=== PATIENT | female | born 1975 | race Caucasian/White ===

== ENCOUNTER 2023-11-02 09:11 | Emergency (ER) | payer BC, OTHER, SELFPAY ==
--- NOTE | ~2023-11-02 | US_ITS ---
EXAMINATION: US abdomen limited DATE: 11/02/2023 11:38 INDICATION: Epigastric abdominal pain. Elevated lipase. TECHNIQUE: Multiple grayscale and Doppler ultrasound images of the abdomen were obtained. COMPARISON: None FINDINGS: The visualized portions of the head and body of the pancreas are normal. The liver is carlos l without focal lesion. There is normal flow in main portal vein. The gallbladder is normal in size a nd contains a gallstone. No gallbladder wall thickening or sonographic Mack sign. The common duct i s normal and measures 4 mm. IMPRESSION: 1. Normal pancreas. Note that ultrasound has poor sensitivity for pancreatitis. 2. Cholelithiasis. No evidence of acute cholecystitis. Reviewed, dictated and finalized at location A.
--- NOTE | ~2023-11-02 | CT_ITS ---
EXAMINATION: CT abdomen pelvis w con DATE: 11/02/2023 11:52 INDICATION: Epigastric abdominal pain. TECHNIQUE: Computed tomography (CT) of the abdomen and pelvis was performed with 100 mL Omnipaque 350 intravenous contrast. Automated exposure control and iterative reconstruction technique were employe d. The dose-length product was 641.80 mGy-cm. COMPARISON: Ultrasound 11/02/2023 FINDINGS: The visualized portions of lung bases demonstrate mild atelectasis. No pleural effusion. Th e heart size is normal. No pericardial effusion. The liver and spleen are normal. There is a gallston e in the gallbladder, which is normal in size. The pancreas and adrenal glands are normal. There are cysts in the kidneys measuring up to 16 mm on the left. There is a 5 mm stone in left kidney. There i s diverticulosis of the colon without evidence of diverticulitis. There are no dilated loops of bowel . The appendix is normal. There are no pathologically enlarged lymph nodes. There is no free intraper itoneal fluid. Aortic atherosclerosis is noted. There is a benign bone island in the sacrum. There is severe lumbar spondylosis. IMPRESSION: 1. Cholelithiasis. No evidence of acute cholecystitis. Reviewed, dictated and finalized at location A.
[2023-11-02 09:15] VITALS: BP 141/95; PULSE 79; RESP 18; O2SAT 97
[2023-11-02 09:55] LABS: Alanine Aminotransferase 19 U/L (6-35); Albumin Level 4.7 g/dL (3.5-5.1); Alkaline Phosphatase 56 U/L (38-126); Anion Gap 9 mmol/L (4-12); Aspartate Amino Transferase 26 U/L (14-36); Bilirubin,Total 0.3 mg/dL (0.2-1.3); Blood Urea Nitrogen 20 mg/dL (7-17); Calcium 9.6 mg/dL (8.4-10.2); Carbon Dioxide 26 mmol/L (22-30); Chloride 102 mmol/L (98-107); Estimated CRCL calculation 60 ml/min; Estimated Glomerular Filt Rate 53; Glucose 89 mg/dL (65-110); Lipase 377 U/L (23-300); Potassium 3.6 mmol/L (3.4-5.0); Sodium 137 mmol/L (137-145)
[2023-11-02 09:58] LABS: Basophils Percent Auto 0.7 % (0.2-1.2); Eosinophils Absolute Auto 0.2 K/mm3 (0-0.3); Eosinophils Percent Auto 2.8 % (0-4.4); Hematocrit 39.4 % (37.0-47.0); Hemoglobin 13.7 g/dL (12.0-15.0); Immature Granulocyte Absolute 0.01 K/mm3 (0.00-0.031); Immature Granulocyte Percent A 0.2 % (0-0.5); Lymphocytes Percent Auto 29.8 % (18.3-44.2); Mean Corpuscular HGB Conc 34.8 g/dl (32-36); Mean Corpuscular Hemoglobin 31.2 pg (26-34); Mean Corpuscular Volume 89.7 fl (80-100); Mean Platelet Volume 11.4 fl (7.4-10.4); Monocytes Absolute Auto 0.5 K/mm3 (0.1-0.6); Monocytes Percent Auto 8.9 % (2.6-8.5); Neutrophils Absolute Auto 3.1 K/mm3 (1.3-6.7); Neutrophils Percent Auto 57.6 % (45.5-73.1); Platelet Count Result 305 k/mm3 (150-375); Red Blood Count 4.39 M/mm3 (4.2-5.4); Red Cell Distribution Width 14.2 % (11.5-14.5); White Blood Count 5.4 K/mm3 (4.5-10.0)
[2023-11-02 10:00] VITALS: BP 147/86; PULSE 79; RESP 16; O2SAT 100
[2023-11-02 10:10] LABS: Add Urine Microscopic? YES; Appearance Urine Clear (Clear); Bacteria Urine None Seen /hpf; Bilirubin Urine Negative (Negative); Blood Urine 2+ (Negative); Color Urine Yellow (Yellow); Glucose Urine UA Negative (Negative); Ketones Urine Negative (Negative); Leukocyte Esterase Ur Negative LEU/UL (Negative); Nitrate Urine Negative (Negative); Non Pathogenic Casts 0-2; Protein Urine Negative (Negative); Specific Grav Ur 1.013 (1.001-1.035); Squamous Epithelial Cell Urine None Seen /hpf (Few); Urobilinogen Urine 0.2 mg/dL (<2.0); WBC Urine 0-5 /hpf (0-3)
--- NOTE | 2023-11-02 10:20 | ED.ABDPAIN ---
HPI - Abdominal Pain General Chief Complaint: Abdominal Pain Stated Complaint: abdominal pain Time Seen by Provider: 11/02/23 09:39 History of Present Illness HPI narrative: This is a 48-year-old female with a past medical history significant for gastroesophageal reflux disease, anxiety. She presents to the emergency department today with a chief complaint of epigastric abdominal pain that is nonradiating. She states it feels like a band across her epigastrium and a gnawing sensation in the center of her abdomen. States she went to her doctor's appointment 2 days ago which she was told she potentially has a peptic ulcer and was told to lay off any NSAIDs, caffeine or any stressors in her life. She states she has never had an ulcer before. Presently is Wegoovy go be for weight loss but no recent titration is or changes and she has been on for 9 months. No significant drinking history. No history of gallstones to her nausea. History of abdominal surgery including hysterectomy. No recent traumas or injuries. States her symptoms are going on for 2 days intermittent, not alleviated by any of her Protonix, he pads or any position changes. Denies any urinary complaints. No chest pain, shortness a breath, headache, vision changes, GI or symptoms otherwise. Related Data Allergies Allergy/AdvReac Type Severity Reaction Status Date / Time Penicillins Allergy Anaphylaxis Verified 11/02/23 11:05 Review of Systems Review of Systems: As reviewed above in HPI Exam Narrative: GENERAL: [Well-appearing, well-nourished, and in no acute distress.] HEAD: [Normocephalic, atraumatic.] EYES: [PERRLA and EOMI.] ENT: Nares clear, no rhinorrhea or epistaxis. Mucous membranes moist. NECK: Supple. CHEST: [Clear to auscultation. No respiratory distress.] HEART: [Regular rate and rhythm]. No murmur heard. [Normal peripheral pulses.] ABDOMEN: [Soft, nondistended], [nontender], [No rigidity or guarding] EXTREMITIES: Normal range of motion. [No edema.] SKIN: Warm, dry, no rash. NEURO: [No focal deficits]. Alert and oriented [x3.] PSYCH: [Normal mood and affect.] Course Vital Signs Vital signs: Vital Signs Pulse Rate 79 11/02/23 09:15 Respiratory Rate 18 11/02/23 09:15 Blood Pressure 141/95 H 11/02/23 09:15 Pulse Oximetry 97 11/02/23 09:15 Pulse Rate 73 11/02/23 12:00 Respiratory Rate 16 11/02/23 12:00 Blood Pressure 144/87 H 11/02/23 12:00 Pulse Oximetry 100 11/02/23 12:00 MDM - Abdominal Pain MDM Narrative Medical decision making narrative: This is a 48-year-old female with a past medical history including gastroesophageal reflux disease, anxiety, Wegoovy therapy for weight loss. Today she presents with a gnawing epigastric pain for 2 days time. Was told she potentially has an ulcer by her primary care provider yesterday. Pain has worsened so she proceeded to the ER for evaluation. She takes a combination tab for her gastroesophageal reflux disease which include Protonix, no improvement her symptoms. Patient does state that she takes daily NSAIDs for chronic headaches, but no changes or recent increases. She states she has actually been decreasing her dose given her headaches have been improving. Examination is reassuring with normal vital signs, normal cardiovascular assessment and a soft nontender nondistended abdomen. Differential diagnosis at this time includes gastritis, peptic ulcer disease, gastroenteritis, cholelithiasis, cholecystitis. Given that she is on a injectable for weight loss therapy this could also be a pancreatitis related to that or other causes such as an obstructing stone. She has no significant cardiovascular risk factors and I do not believe this is ACS or an ACS equivalent. A broad workup was ordered including a CBC, CMP, lipase, urinalysis. Ultrasound of the right upper quadrant a CT of the abdomen pelvis with attention to the epigastrium was ordered. She was given fluid b
[2023-11-02 11:00] VITALS: BP 141/95; PULSE 83; RESP 18; O2SAT 100
[2023-11-02] MEDS: FAMOTIDINE 20 MG/2 ML VIAL IV PUSH (11:05)
[2023-11-02] MEDS: LACTATED RINGERS 1,000 ML 999 ML IV CONT (11:06)
[2023-11-02] MEDS: MAG HYDROX/AL HYDROX/SIMETH 30 ML UDC PO (11:06)
[2023-11-02 12:00] VITALS: BP 144/87; PULSE 73; RESP 16; O2SAT 100
[2023-11-02 13:50] VITALS: BP 140/82; PULSE 70; RESP 18; O2SAT 99
== END 2023-11-02 13:50 | disposition home or self-care (01) ==
PROVIDERS: Emergency Provider Student in an Organized Health Care Education/Training Program; PCP Family Medicine
DX: K80.20 Calculus of gallbladder without cholecystitis without obstruction (principal); K21.9 Gastro-esophageal reflux disease without esophagitis; Z79.85 Long-term (current) use of injectable non-insulin antidiabetic drugs
CPT/HCPCS: 36415; 74177; 76705; 80053; 81001; 83690; 85025; 96361; 96374; 99284; A9270; J7120; Q9967

== ENCOUNTER 2024-12-02 08:02 | Observation (INO) | payer OTHER, SELFPAY ==
[2024-12-02] VITALS (16 sets, daily range): BP systolic 110–144; BP diastolic 63–91; PULSE 67–97; RESP 10–18; TEMP 35.9–36.8; O2SAT 98–100; BMI 20.2
--- NOTE | ~2024-12-02 | US_ITS ---
EXAMINATION: US renal BI DATE: 12/03/2024 11:26 INDICATION: Renal lesions TECHNIQUE: Multiple ultrasound grayscale images of the kidneys were obtained. COMPARISON: 12/02/2024 FINDINGS: The right kidney measures 11.7 x 6.2 x 7.5 cm. The left kidney measures 10.3 x 5.7 x 4.9 cm. The kidneys demonstrate normal echogenicity. There are a couple anechoic exophytic cysts at the lower pole the left kidney measuring 1.5 cm and 1.3 cm in maximal diameters. The previously seen bilateral hydronephrosis has resolved. No stones identified. The bladder is normal. IMPRESSION: 1. Interval resolution of prior bilateral hydronephrosis. Reviewed, dictated and finalized at location A.
--- NOTE | ~2024-12-02 | XR_ITS ---
EXAMINATION: XR retrograde pyelo w/stent BI DATE: 12/02/2024 11:51 INDICATION: Nephrolithiasis with bilateral obstructive uropathy including bilateral hydronephrosis, hematuria and right flank pain TECHNIQUE: 66 fluoroscopic images of the abdomen and pelvis were obtained during procedure performed by Dr. Adair. Radiologist was not present for the imaging or procedure. The amount of fluoroscopy time used during this procedure was 0.5 minutes. Total DAP was 0.544 mGym^2. COMPARISON: CT dated 12/02/2024 FINDINGS: Spiral Weaver image demonstrates a bone islands at the left sacrum. There are couple phleboliths in the left hemipelvis along with a stone at the distal left ureter. The previously seen tiny stone at the distal right ureter is unable to visualized which could be due to either interval passage or its small size. Subsequent images demonstrate cannulation and retrograde contrast injection into the bilateral ureters which demonstrate mild bilateral hydronephrosis. Normal bowel lucent gas bubbles are seen in the bilateral ureters during the course of injection. Final images demonstrate placement of bilateral internal ureteral stents in expected position with proximal loops in the lower pole calyces of both kidneys and distal loops in the bladder. The stone at the distal left ureter is no longer visualized and may have been extracted. IMPRESSION: 1. Fluoroscopy utilized during bilateral retrograde pyelogram, possible left ureteral stone extraction and bilateral internal ureteral stent placements with stents in expected positions. See procedure note for further detail. Reviewed, dictated and finalized at location A. IMPRESSION: 1. Fluoroscopy utilized during bilateral retrograde pyelogram, possible left ur eteral stone extraction and bilateral internal ureteral stent placements with s tents in expected positions. See procedure note for further detail.
--- NOTE | ~2024-12-02 | CT_ITS ---
EXAMINATION: CT abdomen pelvis wo con, 12/02/2024 8:30 CDT HISTORY: hematuria, right flank pain, hx renal stones COMPARISON: No comparisons available. TECHNIQUE: CT scan of the abdomen and pelvis was performed without IV contrast. One or more of the following dose reduction techniques were used: automated exposure control, adjustment of the mA and/or kV according to patient size, use of iterative reconstruction technique. Unless otherwise stated, incidental findings do not require dedicated follow up imaging FINDINGS: CT abdomen: LUNG BASES: The lung bases are clear. The visualized portions of the heart and pericardium are unremarkable. LIVER: Unremarkable, liver contours intact, no lesions. SPLEEN: Unremarkable, no splenomegaly. KIDNEYS: Right Kidney: Right kidney moderate hydronephrosis and hydroureter degenerative obstructing distal 2 x 2 millimeter ureteral calculus. Left Kidney: Left kidney moderate hydronephrosis and hydroureter due to an obstructing distal 4.5 x 5 mm ureteral calculus with a second calculus in the distal ureter measuring 6 x 5 x 5 mm. Left kidney superior pole there is a complex lesion 2 x 2 cm incompletely evaluated, ultrasound is recommended. Left kidney midpole simple cyst 1 x 1 cm. Left kidney lower pole simple appearing renal cyst 2 x 2 cm. ADRENAL GLANDS: Unremarkable. PANCREAS: Unremarkable. GALLBLADDER/BILIARY: Cholelithiasis. STOMACH AND ESOPHAGUS: Visualized stomach and esophagus within normal limits. BOWEL/MESENTERY: Moderate fecal content, no colitis or diverticulitis. Appendix normal. Mesentery normal. No thickened or dilated loops of small bowel. ADENOPATHY/RETROPERITONEUM: No lymphadenopathy. AORTA/VASCULATURE: Normal caliber aorta. FREE FLUID OR FREE AIR: No free fluid.. CT pelvis: SOLID ORGANS/REPRODUCTIVE: Post hysterectomy. No adnexal mass. BLADDER: Within normal limits. OSSEOUS STRUCTURES: No acute osseous abnormality.No suspicious lesions. OVERLYING SOFT TISSUES: Unremarkable. IMPRESSION: 1. Bilateral obstructive uropathy. 2. Complex left renal lesion concerning for neoplasm. Ultrasound recommended Reviewed, dictated and finalized at location P.
[2024-12-02] MEDS: SODIUM CHLORIDE 0.9% IV 1,000 ML 999 ML IV CONT (08:55)
[2024-12-02] MEDS: ONDANSETRON INJ 4 MG/2 ML VIAL IV PUSH (08:56)
[2024-12-02] MEDS: MORPHINE SULFATE (*CRX) 4 MG/ML INJ IV PUSH (08:58)
[2024-12-02 09:00] LABS: Hematocrit 36.8 % (37.0-47.0); Hemoglobin 12.4 g/dL (12.0-15.0); Immature Granulocyte Percent A 0.4 % (0-0.5); Lymphocytes Absolute Auto 1.07 K/mm3 (0.9-3.2); Mean Corpuscular HGB Conc 33.7 g/dl (32-36); Mean Corpuscular Hemoglobin 29.9 pg (26-34); Mean Corpuscular Volume 88.7 fl (80-100); Nucleated Red Blood Cells Absolute Auto 0.000 K/mm3 (0.0-0.012); Nucleated Red Blood Cells Perc 0.0 % (0.0-0.2); Platelet Count Result 276 k/mm3 (150-375); Red Blood Count 4.15 M/mm3 (4.2-5.4); White Blood Count 10.0 K/mm3 (4.5-10.0)
--- NOTE | 2024-12-02 09:03 | PC.NURSE ---
pt was given half her morphine dose, 2mg. pt says she felt tingling and didn't want the other half. 2 RN waste
[2024-12-02 09:11] LABS: Add Urine Microscopic? YES; Alanine Aminotransferase 16 U/L (6-35); Albumin Level 4.2 g/dL (3.5-5.1); Alkaline Phosphatase 45 U/L (38-126); Anion Gap 9 mmol/L (4-12); Appearance Urine Cloudy (Clear); Aspartate Amino Transferase 26 U/L (14-36); Bilirubin,Total 0.5 mg/dL (0.2-1.3); Blood Urea Nitrogen 37 mg/dL (7-17); Calcium 10.1 mg/dL (8.4-10.2); Carbon Dioxide 24 mmol/L (22-30); Chloride 104 mmol/L (98-107); Estimated CRCL calculation 25 ml/min; Estimated Glomerular Filt Rate 19; Glucose 97 mg/dL (65-110); Lipase 198 U/L (23-300); Non Pathogenic Casts 0-2; Potassium 4.5 mmol/L (3.4-5.0); Sodium 137 mmol/L (137-145); Total Protein 7.3 g/dL (6.3-8.2)
[2024-12-02 09:14] LABS: Need Manual Microscopic Reviewed
--- NOTE | 2024-12-02 09:27 | ED.GENADULT ---
HPI - General Adult General Chief complaint: Back Pain/Injury Stated complaint: poss kidney stones Time Seen by Provider: 12/02/24 08:11 History of Present Illness HPI narrative: Patient is a 49-year-old female who presents ER with flank pain. Ongoing over last couple days. Has pain in left abdomen as well as right upper abdomen. She has tried azo without improvement. No dysuria. She has been having blood in her urine over the last few days as well. Alleviating factors. No fevers or chills or sweats. Has history of kidney stone. Related Data Home Medications ?Medication ?Instructions ?Recorded ?Confirmed ?Last Taken ?Type bupropion HCl 300 mg 24 hr tablet, mg PO 12/02/24 12/01/24 History extended release estradiol 1 mg tablet mg 12/02/24 12/01/24 History ezetimibe 10 mg tablet mg 12/02/24 12/01/24 History fenofibrate nanocrystallized 145 mg PO 12/02/24 12/01/24 History mg tablet ondansetron 4 mg disintegrating mg 12/02/24 12/02/24 History tablet semaglutide (weight loss) 1.7 mg subcut 12/02/24 11/27/24 History mg/0.75 mL subcutaneous pen injector (Wegovy) semaglutide (weight loss) 2.4 mg subcut 12/02/24 Unknown History mg/0.75 mL subcutaneous pen injector (Wegovy) trazodone 50 mg tablet mg 12/02/24 Unknown History valacyclovir 500 mg tablet mg 12/02/24 Unknown History Allergies Allergy/AdvReac Type Severity Reaction Status Date / Time Penicillins Allergy Anaphylaxis Verified 12/02/24 13:53 fluoxetine (From Prozac) AdvReac Intermediate Rash Verified 12/02/24 13:53 sumatriptan (From Imitrex) AdvReac Intermediate shortness Verified 12/02/24 13:53 of breath Review of Systems Review of Systems: All systems reviewed & are unremarkable except as noted in HPI and below Constitutional: Constitutional: Reports no additional constitutional complaints Cardiovascular: Cardiovascular: Reports no additional cardiovascular complaints Respiratory: Respiratory: Reports no additional respiratory complaints Gastrointestinal: Gastrointestinal: Reports no additional gastrointestinal complaints Genitourinary: Genitourinary: Reports no additional female genitourinary complaints [facility] Past Medical History Medical History GERD (gastroesophageal reflux disease) History of kidney stones Family History Family History (Updated 12/02/24 @ 13:53 by Iwona Yan RN) Mother Migraine Grandparent Pneumonia Cirrhosis Social History Social History Smoking status: Former smoker Tobacco type: cigarettes Smoking end date: 09/26/15 Alcohol intake: never Substance use: never Substance use type: marijuana Other substance usage details: pt states she took a gummy for pain control last night and for sleep Last use: 12/01/24 Lack of Transportation: No Lack of Food: Never True Current Housing: I Have Housing Concerned About Future Housing: No Difficulty Paying Gas/Electric Bills: No Difficulty Paying for Meds: No Currently Unemployed: No Education: Decline to Answer Difficulty w/ Childcare or Family Care: No Spiritual care concerns: No Exam Narrative: GENERAL: Well-appearing, well-nourished, and in no acute distress. HEAD: Normocephalic, atraumatic. ENT: Mucous membranes moist. CHEST: Clear to auscultation. No respiratory distress. HEART: Regular rate and rhythm. Normal peripheral pulses. ABDOMEN: Soft, mild discomfort in RUQ and LLQ, nondistended. EXTREMITIES: Normal range of motion. No edema. SKIN: Warm, dry, no rash. NEURO: Alert and oriented x3. PSYCH: Normal mood and affect. Course Course Emergency Course: Patient informed of results. Discussed case with urology and they will take her to the OR for stenting. Urine is not infected. Admit to hospitalist service. Vital Signs Vital signs: Vital Signs Temperature 97.6 F 12/02/24 08:11 Pulse Rate 71 12/02/24 08:11 Respiratory Rate 15 12/02/24 08:11 Blood Pressure 132/63 12/02/24 08:11 Pulse Oximetry 100 12/02/24 08:11 Oxygen Delivery Room Air 12/02/24 08:11 Temperature 97.4 F L 12/02/24 15:41 Pulse Rate 80 12/02/24 15:41 Respiratory Rate 18 12/02/24 15:41 Blood Pressure 144/89 H 12/02/24 15:41 Pulse Oximetry 99 12/02/24 15:41 Oxygen Delivery Room Air 12/02/24 15:21 Oxygen Flow Rate 8 12/02/24 12:25 Medical Decision Making Vital Signs Vital Signs: Vital Signs Temperature 97.6 F 12/02/24 08:11 Pulse Rate 71 12/02/24 08:11 Respiratory Rate 15 12/02/24 08:11 Blood Pressure 132/63 12/02/24 08:11 Pulse Oximetry 100 12/02/24 08:11 Oxygen Delivery Room Air 12/02/24 08:11 Temperature 97.4 F L 12/02/24 15:41 Pulse Rate 80 12/02/24 15:41 Respiratory Rate 18 12/02/24 15:41 Blood Pressure 144/89 H 12/02/24 15:41 Pulse Oximetry 99 12/02/24 15:41 Oxygen Delivery Room Air 12/02/24 15:21 Oxygen Flow Rate 8 12/02/24 12:25 Lab Data 12/02/24 08:47 12/02/24 08:47 Labs: Lab Results 12/02/24 Range/Units 08:47 WBC 10.0 (4.5-10.0) K/mm3 RBC 4.15 L (4.2-5.4) M/mm3 Hgb 12.4 (12.0-15.0) g/dL Hct 36.8 L (37.0-47.0) % MCV 88.7 (80-100) fl MCH 29.9 (26-34) pg MCHC 33.7 (32-36) g/dl RDW 13.1 (11.5-14.5) % Plt Count 276 (150-375) k/mm3 MPV 10.9 H (7.4-10.4) fl Immature Gran % (Auto) 0.4 (0-0.5) % Neut % (Auto) 80.2 H (45.5-73.1) % Lymph % (Auto) 10.7 L (18.3-44.2) % [place] % (Auto) 6.3 (2.6-8.5) % Eos % (Auto) 2.0 (0-4.4) % Baso % (Auto) 0.4 (0.2-1.2) % Lymph # (Auto) 1.07 (0.9-3.2) K/mm3 [place] # (Auto) 0.6 (0.1-0.6) K/mm3 Eos # (Auto) 0.2 (0-0.3) K/mm3 Baso # (Auto) 0.0 (0.0-0.1) K/mm3 Abs Immat Gran (auto) 0.04 H (0.00-0.031) K/mm3 Absolute Neuts (auto) 8.0 H (1.3-6.7) K/mm3 Absolute Nucleated RBC 0.000 (0.0-0.012) K/mm3 Nucleated RBC % 0.0 (0.0-0.2) % Sodium 137 (137-145) mmol/L Potassium 4.5 (3.4-5.0) mmol/L Chloride 104 (98-107) mmol/L Carbon Dioxide 24 (22-30) mmol/L Anion Gap 9 (4-12) mmol/L BUN 37 H D (7-17) mg/dL Creatinine 2.59 H (0.7-1.0) mg/dL Estim Creat Clear Calc 25 ml/min Estimated GFR 19 L (59 - ) Glucose 97 (65-110) mg/dL Calcium 10.1 (8.4-10.2) mg/dL Total Bilirubin 0.5 (0.2-1.3) mg/dL AST 26 (14-36) U/L ALT 16 (6-35) U/L Alkaline Phosphatase 45 (38-126) U/L Total Protein 7.3 (6.3-8.2) g/dL Albumin 4.2 (3.5-5.1) g/dL Lipase 198 (23-300) U/L Urine Color [place] H (Yellow) Urine Appearance Cloudy H (Clear) Urine pH TNP Ur Specific [place] TNP Urine Protein TNP Urine Glucose (UA) TNP Urine Ketones TNP Ur Blood (Man) TNP Urine Nitrate TNP Urine Bilirubin TNP Urine Urobilinogen TNP Add Ur Microanalysis Reviewed Leukocyte Esterase Rfl TNP Urine RBC 21-50 H (0-2) /hpf Urine WBC 21-50 H (0-3) /hpf Ur Squamous Epith Cells Occasional (Few) /hpf Urine Bacteria None seen /hpf Urine Casts 0-2 Imaging Data Radiologist's impression: ITS Impressions Abdomen/Pelvis CT 12/02/24 08:44 IMPRESSION: 1. Bilateral obstructive uropathy. 2. Complex left renal lesion concerning for neoplasm. Ultrasound recommended Critical Care Time Critical Care Time Critical Care Time: Yes Total Critical Care Time: 35 Discharge Plan Discharge Clinical Impression: Calculus of both ureters, Acute kidney injury Patient Disposition: Still a Patient Condition: Stable
--- NOTE | 2024-12-02 10:21 | P.CONUR_ITS ---
Assessment and Plan Assessment and plan (1) Calculus of both ureters: Code(s): N20.1 - Calculus of ureter Status: Acute (2) Hydronephrosis: Code(s): N13.30 - Unspecified hydronephrosis Status: Acute (3) Acute kidney injury: Code(s): N17.9 - Acute kidney failure, unspecified Status: Acute Plan Will be taken urgently to the operating room for intervention due to her renal failure and bilateral obstructing ureteral stones. Will the very least bilateral stents in. I may also attempt to extract 1 or both sides to get rid her stone free. Consented for cystoscopy, bilateral ureteroscopy, possible ureteroscopy bilaterally, possible bilateral ureteral stent placement, possible holmium laser lithotripsy Urology Consult Note HPI Date Seen: 12/02/24 Requesting Physician: Emergency room physician Dr. Posadas Primary Care Provider: Kevin Grace, Consult Narrative Narrative: Milo Boo is a 49 year old female with no prior history of nephrolithiasis. She had acute onset of right flank pain this morning associated with nausea vomiting. This prompted a visit to the emergency room. She denied fevers or chills. She denied symptoms of urinary tract infection. She underwent a CT scan which showed bilateral hydronephrosis with bilateral the distal ureteral stones. The right side measuring 2 x 2 mm. Two on the left side 1 measuring 4 mm 1 measuring 6 mm. Her creatinine is elevated at 2.6. She will be taking her urgently today for intervention due to the renal failure Review of Systems 2 Review of Systems: All systems reviewed & are unremarkable except as noted in HPI and below PMFSH Past Medical History Medical History GERD (gastroesophageal reflux disease) History of kidney stones Meds Home Medications and Allergies Home Medications ?Medication ?Instructions ?Recorded ?Confirmed ?Type aluminum-mag hydroxide-simethicone 15 ml PO QID PRN pa in #3,000 mL 11/02/23 Rx 200 mg-200 mg-20 mg/5 mL oral susp (Antacid) famotidine 40 mg tablet (Pepcid) 40 mg PO BID #20 tabs 11/02/23 Rx Allergies Allergy/AdvReac Type Severity Reaction Status Date / Time Penicillins Allergy Anaphylaxis Verified 12/02/24 08:52 fluoxetine (From Prozac) AdvReac Intermediate Rash Verified 12/02/24 08:52 sumatriptan (From Imitrex) AdvReac Intermediate Unknown Verified 12/02/24 08:52 Vital Signs Vital Signs - 24 hr 12/02/24 08:11 12/02/24 09:01 Temperature 97.6 F Pulse Rate 71 76 Respiratory Rate 15 16 Blood Pressure 132/63 126/80 Pulse Oximetry 100 100 Oxygen Delivery Room Air Exam 2 Narrative: Laying in bed. with her. Appears reasonably comfortable Const: General: cooperative and healthy appearing Nutritional Appearance: a verage body habitus Orientation/consciousness: patient oriented x3 L imitations: no limitations HENMT: Head: normal to inspection Eyes: General: appearance normal, both eyes and all related structures Neck: Neck: normal visual inspection and full ROM Resp: Effort & Inspection: normal respiratory effort, no cough and no respiratory distress GI: Inspection: normal to inspection Skin: General skin exam: normal color Neuro: General: patient oriented x3 Extrem: General: normal to inspection and full ROM Psych: Appearance: grossly normal Results Labs 12/02/24 08:47 12/02/24 08:47 Labs: Short CBC 12/02/24 Range/Units 08:47 WBC 10.0 (4.5-10.0) K/mm3 Hgb 12.4 (12.0-15.0) g/dL Hct 36.8 L (37.0-47.0) % Plt Count 276 (150-375) k/mm3 BMP 12/02/24 08:47 Sodium 137 Potassium 4.5 Chloride 104 Carbon Dioxide 24 BUN 37 H D Creatinine 2.59 H Glucose 97 Calcium 10.1 Liver Function 12/02/24 Range/Units 08:47 Total Bilirubin 0.5 (0.2-1.3) mg/dL AST 26 (14-36) U/L ALT 16 (6-35) U/L Alkaline Phosphatase 45 (38-126) U/L Albumin 4.2 (3.5-5.1) g/dL Urine 12/02/24 Range/Units 08:47 Urine Color [place] H (Yellow) Urine Appearance Cloudy H (Clear) Urine pH TNP Ur Specific [place] TNP Urine Protein TNP Urine Glucose (UA) TNP Imaging My impression: As per history of present illness. Images were reviewed by myself
--- NOTE | 2024-12-02 10:36 | WPDHPUPDATE1 ---
History and Physical Update Update Date/Time: 12/02/24 10:36 History and Physical has been reviewed, including an updated exam of the patient. There are NO changes in the patient's condition. Risks, benefits, and alternatives have been discussed and questions answered. Patient agrees to proceed with procedure.
--- NOTE | 2024-12-02 11:00 | WPDANESEPPF ---
Anes - Initial Pre Proc Eval Procedure: Operation Date: 12/02/24 14:30 Proposed Procedures p Cystoscopy, Possible Bilateral Ureteroscopy, Possible Bilateral Retrograde Pyelogram, Possible Bilateral Stone Extraction, Possible Bilateral Ureteral Stent Placement, Possible Holmium Laser Lithotripsy - Edward Adair MD Date/Time: 12/02/24 11:00 Pre Op Diagnosis: poss kidney stones Patient Data Age: 49 Gender: F Height: 1.8 m Weight: 65.9 kg Last Vital Signs Temp 36.4 C 12/02/24 08:11 Pulse 81 12/02/24 10:31 Resp 18 12/02/24 10:31 BP 136/81 12/02/24 10:31 Pulse Ox 100 12/02/24 10:31 O2 Del Method Room Air 12/02/24 08:11 Allergies Allergy/AdvReac Type Severity Reaction Status Date / Time Penicillins Allergy Anaphylaxis Verified 12/02/24 08:52 fluoxetine (From Prozac) AdvReac Intermediate Rash Verified 12/02/24 08:52 sumatriptan (From Imitrex) AdvReac Intermediate Unknown Verified 12/02/24 08:52 Home Medications ?Medication ?Instructions ?Recorded ?Confirmed ?Type aluminum-mag hydroxide-simethicone 15 ml PO QID PRN pain #3,000 mL 11/02/23 Rx 200 mg-200 mg-20 mg/5 mL oral susp (Antacid) famotidine 40 mg tablet (Pepcid) 40 mg PO BID #20 tabs 11/02/23 Rx Laboratory Tests 12/02/24 08:47 WBC 10.0 K/mm3 (4.5-10.0) RBC 4.15 L M/mm3 (4.2-5.4) Hgb 12.4 g/dL (12.0-15.0) Hct 36.8 L % (37.0-47.0) MCV 88.7 fl (80-100) MCH 29.9 pg (26-34) MCHC 33.7 g/dl (32-36) RDW 13.1 % (11.5-14.5) Plt Count 276 k/mm3 (150-375) MPV 10.9 H fl (7.4-10.4) Immature Gran % (Auto) 0.4 % (0-0.5) Neut % (Auto) 80.2 H % (45.5-73.1) Lymph % (Auto) 10.7 L % (18.3-44.2) [place] % (Auto) 6.3 % (2.6-8.5) Eos % (Auto) 2.0 % (0-4.4) Baso % (Auto) 0.4 % (0.2-1.2) Lymph # (Auto) 1.07 K/mm3 (0.9-3.2) [place] # (Auto) 0.6 K/mm3 (0.1-0.6) Eos # (Auto) 0.2 K/mm3 (0-0.3) Baso # (Auto) 0.0 K/mm3 (0.0-0.1) Abs Immat Gran (auto) 0.04 H K/mm3 (0.00-0.031) Absolute Neuts (auto) 8.0 H K/mm3 (1.3-6.7) Absolute Nucleated RBC 0.000 K/mm3 (0.0-0.012) Nucleated RBC % 0.0 % (0.0-0.2) Sodium 137 mmol/L (137-145) Potassium 4.5 mmol/L (3.4-5.0) Chloride 104 mmol/L (98-107) Carbon Dioxide 24 mmol/L (22-30) Anion Gap 9 mmol/L (4-12) BUN 37 H D mg/dL (7-17) Creatinine 2.59 H mg/dL (0.7-1.0) Estim Creat Clear Calc 25 ml/min Estimated GFR 19 L (59 - ) Glucose 97 mg/dL (65-110) Calcium 10.1 mg/dL (8.4-10.2) Total Bilirubin 0.5 mg/dL (0.2-1.3) AST 26 U/L (14-36) ALT 16 U/L (6-35) Alkaline Phosphatase 45 U/L (38-126) Total Protein 7.3 g/dL (6.3-8.2) Albumin 4.2 g/dL (3.5-5.1) Lipase 198 U/L (23-300) Urine Color [place] H (Yellow) Urine Appearance Cloudy H (Clear) Urine pH TNP Ur Specific [place] TNP Urine Protein TNP Urine Glucose (UA) TNP Urine Ketones TNP Ur Blood (Man) TNP Urine Nitrate TNP Urine Bilirubin TNP Urine Urobilinogen TNP Add Ur Microanalysis Reviewed Leukocyte Esterase Rfl TNP Urine RBC 21-50 H /hpf (0-2) Urine WBC 21-50 H /hpf (0-3) Ur Squamous Epith Cells Occasional /hpf (Few) Urine Bacteria None seen /hpf Urine Casts 0-2 Patient hx anesthesia problems: none Family hx anesthesia problems: none Results Review: All pre-operative results and documents have been reviewed as part of the pre-operative evaluation. [facility] Past Medical History Medical History GERD (gastroesophageal reflux disease) History of kidney stones Anes - Eval Final PreProcedure Day of Procedure 12/02/24 11:00 Patient weight: normal Heart: regular rate and rhythm Lungs: clear to auscultation Airway: Mallampati scale class III and special considerations poor opening Neurological: alert and oriented Last oral intake: >/= 8 hours ASA classification: II Emergent: no Anesthetic plan: proceed Anesthesia type and monitoring: general LMA and standard monitoring Results Review: All pre-operative results and documents have been reviewed as part of the pre-operative evaluation. Informed Consent: The patient's anesthetic plan and its attendant risks and benefits were discussed with the patient/family/POA. Questions were solicited and answers provided to the satisfaction of the patient/family/POA.
[2024-12-02] MEDS: ceFAZolin 2 GM in SODIUM CHLORIDE 0.9% IV 50 ML 100 ML IVPB (11:11)
[2024-12-02] MEDS: LIDOCAINE 2% GEL UROJET 10 ML PKG MUCOUS MEM (11:25)
--- NOTE | 2024-12-02 11:45 | S_PTH ---
PATIENT: Kyleigh Boo LOC: [id number] U#:[id number] AGE/SX: 49/F ROOM: 317 RE12/02/[address]: Lex Hayes MD : [id number] BED: 02 DIS: 12/03/2024 SPEC #: [id number] RECD: 12/02/24 13:31 STATUS: JOCELINE REJacky #: [id number] ADAM: 12/02/24 11:[address]: Edward Adair DEPT: [facility] Surgical RECD BY: Marizol Gomez ENTERED: 12/02/24 13:31 SP TYPE: Surgical OTHR DR: Kevin Grace, Tissues: A - Stone Procedures: Gross Exam Level 1 Crystalline Analysis
[2024-12-02] MEDS: LACTATED RINGERS 1,000 ML 30 ML IV CONT (11:56)
--- NOTE | 2024-12-02 11:56 | W.PM.PROC2 ---
Procedure Note - Detailed Date of Procedure 12/02/24 Pre-op Diagnosis Bilateral ureteral stones Bilateral hydronephrosis Acute kidney injury Post-op Diagnosis Same Procedure Performed Cystoscopy, bilateral retrograde pyelogram, right ureteroscopy with stone extraction, right ureteroscopy with holmium laser lithotripsy and stone extraction, bilateral ureteral stent placement Surgeon Edward Adair MD Anesthesia General and Local (Uro jet) Indications This along with bilateral ureteral stones and acute kidney injury. She is urgently taken to the operating room for intervention Understands risks of bleeding, infection, damage to the urinary tract, inability to extract the stones. Agreed to proceed Findings Bilateral stone extraction. Bilateral stent placement Description of Procedure She was correctly identified. Informed consent obtained. From the operating room. She was given general anesthesia. She was placed in dorsal lithotomy position. She was prepped and draped sterile fashion. Time-out performed. She was given Ancef as antibiotic. Cystoscopy revealed or madhavi bladder without significant abnormalities. I placed a guidewire into the right ureter. I dilated the ureteral orifice with the 810 dilator. I performed ureteroscopy. The stone was encountered. It was grasped with a basket and removed intact. I reperformed ureteroscopy on the right side no additional stones were seen. I did retrograde pyelogram on the right outline ureteral anatomy. There was no extravasation. Hydronephrosis present. I then placed a 4.8 Polish ureteral stent. The proximal coil in the kidney. Distal coil in the bladder. I then turned my attention towards the contralateral side. I did retrograde pyelogram on the left. There was hydronephrosis and a filling defect in the distal ureter consistent with stone. There was no extravasation. Placed a guidewire into the left kidney. I dilated the ureter the 810 dilator. A large stone burden was encountered in the distal ureter. I used the holmium laser on a dusting setting to fragment the stone. I extracted all the stone fragments. Several stone fragments sent for analysis. I reperformed ureteroscopy and there was no additional stones. There was still contrast in pole kidney. There was no extravasation. I placed a 4.8 variable length stent on the patient's left. Proximal coil in the kidney. Distal coil in the bladder. All was confirmed visually. The bladder was drained. She was awakened transferred PACU in stable condition. Implants Bilateral stents Estimated Blood Loss 1 Drains No Packing No Pathology Yes (Stones) Complications No immediate complications Condition Stable
--- NOTE | 2024-12-02 13:03 | P.HP_ITS ---
H&P: HPI History of Present Illness Date/Time: 12/02/24 13:03 Chief Complaint: Flank pain Narrative: 49-year-old female who presents to the ER with flank pain ongoing for the past couple days. Pain in the left as well as right. Tried azo without improvement. No dysuria. She also noted blood in her urine of the past few days. No fever chills. History of kidney stones. In the ED are vitals were stable. Laboratory studies showed WBC of 10 hemoglobin 12.4 platelet count 276. Chem panel showed sodium 137 potassium 4.5 chloride 104 bicarbonate 24 BUN 37 creatinine 2.59 blood glucose of 97. Lipase is 198 LFTs were normal. Urinalysis showed urine WBC 20 1-50 urine RBC 21-50. CT scan showed bilateral hydronephrosis with bilateral distal ureteral stones. Urology has been consulted. And underwent cystoscopy bilateral ureteroscopy stone extraction and bilateral ureteral stent placement She is admitted in this setting for further treatment. Review of Systems Review of Systems: - CONSTITUTIONAL: Denies weight loss, fe shekhar and chills. - HEENT: Denies changes in vision and he aring - RESPIRATORY: Denies SOB and cough. - CV: Denies palpitations and CP. - GI: Reports abdominal pain, nausea, v omiting and denies diarrhea. - : See HPI - MSK: Denies myalgia and joint pain. - SKIN: Denies rash and pruritus. - NEUROLOGICAL: Denies headache and sync ope. - PSYCHIATRIC: Denies recent changes in mood. Denies anxiety and depression. [facility] Past Medical History Medical History GERD (gastroesophageal reflux disease) History of kidney stones Family History Family History (Updated 12/02/24 @ 13:53 by Iwona Yan RN) Mother Migraine Grandparent Pneumonia Cirrhosis Social History Social History Smoking status: Former smoker Tobacco type: cigarettes Smoking end date: 09/26/15 Alcohol intake: never Substance use: never Substance use type: marijuana Other substance usage details: pt states she took a gummy for pain control last night and for sleep Last use: 12/01/24 Lack of Transportation: No Lack of Food: Never True Current Housing: I Have Housing Concerned About Future Housing: No Difficulty Paying Gas/Electric Bills: No Difficulty Paying for Meds: No Currently Unemployed: No Education: Decline to Answer Difficulty w/ Childcare or Family Care: No Spiritual care concerns: No Meds Home Medications and Allergies Home Medications ?Medication ?Instructions ?Recorded ?Confirmed ?Type aluminum-mag hydroxide-simethicone 15 ml PO QID PRN pa in #3,000 mL 11/02/23 12/02/24 Rx 200 mg-200 mg-20 mg/5 mL oral susp (Antacid) bupropion HCl 300 mg 24 hr tablet, mg PO 12/02/24 His tory extended release estradiol 1 mg tablet mg 12/02/24 History ezetimibe 10 mg tablet mg 12/02/24 History fenofibrate nanocrystallized 145 mg PO 12/02/24 Histo ry mg tablet ondansetron 4 mg disintegrating mg 12/02/24 History tablet semaglutide (weight loss) 1.7 mg subcut 12/02/24 Hist ory mg/0.75 mL subcutaneous pen injector (Wegovy) semaglutide (weight loss) 2.4 mg subcut 12/02/24 Hist ory mg/0.75 mL subcutaneous pen injector (Wegovy) trazodone 50 mg tablet mg 12/02/24 History valacyclovir 500 mg tablet mg 12/02/24 History Allergies Allergy/AdvReac Type Severity Reaction Status Date / Time Penicillins Allergy Anaphylaxis Verified 12/02/24 13:53 fluoxetine (From Prozac) AdvReac Intermediate Rash Verified 12/02/24 13:53 sumatriptan (From Imitrex) AdvReac Intermediate shortness Verified 12/02/24 13:53 of breath Vital Signs Vital Signs - 24 hr 12/02/24 08:11 12/02/24 09:01 12/02/24 10:04 Temperature 97.6 F Pulse Rate 71 76 70 Respiratory Rate 15 16 16 Blood Pressure 132/63 126/80 139/77 Pulse Oximetry 100 100 100 Oxygen Delivery Room Air Oxygen Flow Rate 12/02/24 10:31 12/02/24 11:00 12/02/24 11:56 Temperature 97.4 F L 97.1 F L Pulse Rate 81 67 97 Respiratory Rate 18 18 10 L Blood Pressure 136/81 136/72 131/73 Pulse Oximetry 100 98 100 Oxygen Delivery Room Air Simple Face Mask Oxygen Flow Rate 8 12/02/24 12:10 12/02/24 12:25 12/02/24 12:40 Temperature Pulse Rate 92 83 78 Respiratory Rate 18 12 12 Blood Pressure 126/72 127/84 129/79 Pulse Oximetry 100 100 99 Oxygen Delivery Simple Face Mask Simple Face Mask Room Air Oxygen Flow Rate 8 8 12/02/24 12:55 Temperature Pulse Rate 78 Respiratory Rate 12 Blood Pressure 134/81 Pulse Oximetry 100 Oxygen Delivery Room Air Oxygen Flow Rate Exam Narrative: GENERAL: Well-appearing, well-nourished, and in no acute distress. HEAD: Normocephalic, atraumatic. ENT: Mucous membranes moist. CHEST: Clear to auscultation. No respiratory distress. HEART: Regular rate and rhythm. Normal peripheral pulses. ABDOMEN: Soft, mild discomfort in RUQ and LLQ, nondistended. EXTREMITIES: Normal range of motion. No edema. SKIN: Warm, dry, no rash. NEURO: Alert and oriented x3. PSYCH: Normal mood and affect. H&P: Results Labs Labs: Short CBC 12/02/24 Range/Units 08:47 WBC 10.0 (4.5-10.0) K/mm3 Hgb 12.4 (12.0-15.0) g/dL Hct 36.8 L (37.0-47.0) % Plt Count 276 (150-375) k/mm3 BMP 12/02/24 08:47 Sodium 137 Potassium 4.5 Chloride 104 Carbon Dioxide 24 BUN 37 H D Creatinine 2.59 H Glucose 97 Calcium 10.1 Liver Function 12/02/24 Range/Units 08:47 Total Bilirubin 0.5 (0.2-1.3) mg/dL AST 26 (14-36) U/L ALT 16 (6-35) U/L Alkaline Phosphatase 45 (38-126) U/L Albumin 4.2 (3.5-5.1) g/dL Urine 12/02/24 Range/Units 08:47 Urine Color [place] H (Yellow) Urine Appearance Cloudy H (Clear) Urine pH TNP Ur Specific [place] TNP Urine Protein TNP Urine Glucose (UA) TNP Assessment and Plan Assessment and plan (1) Calculus of both ureters: Code(s): N20.1 - Calculus of ureter Status: Acute (2) Hydronephrosis: Code(s): N13.30 - Unspecified hydronephrosis Status: Acute (3) Acute kidney injury: Code(s): N17.9 - Acute kidney failure, unspecified Status: Acute Plan 49-year-old female who presents to the ER with flank pain ongoing for the past couple days. Pain in the left as well as right. Tried azo without improvement. No dysuria. She also noted blood in her urine of the past few days. No fever chills. History of kidney stones. In the ED are vitals were stable. Laboratory studies showed WBC of 10 hemoglobin 12.4 platelet count 276. Chem panel showed sodium 137 potassium 4.5 chloride 104 bicarbonate 24 BUN 37 creatinine 2.59 blood glucose of 97. Lipase is 198 LFTs were normal. Urinalysis showed urine WBC 20 1-50 urine RBC 21-50. CT scan showed bilateral hydronephrosis with bilateral distal ureteral stones. Urology has been consulted. And underwent cystoscopy bilateral ureteroscopy stone extraction and bilateral ureteral stent placement She is admitted in this setting for further treatment. Bilateral obstructive uropathy with bilateral ureteral stones and bilateral hydronephrosis ULISES with creatinine up to 2.5. Baseline creatinine 1.1 continue IV hydration UTI levofloxacin IV follow urine culture allergic to penicillin Left renal lesion concerning for neoplasm. Ultrasound recommend will do renal ultrasound Hypertension home medication Hyperlipidemia home medication Anxiety depression home medication DVT prophylaxis SCDs Code status full code Hospitalist [facility] Advance Care Plan I have confirmed that the patient's Advanced Care Plan is present, code status is documented, or surrogate decision maker is listed in patient medical record.: Yes Medication Reconciliation I have utilized all available resources to obtain, update and review the patients current medications (includes all prescriptions, OTC, herbals, cannabis, and nutritional supplements).: Yes
[2024-12-02] MEDS: levoFLOXacin 750 MG/D5W 150 ML 750 MG/150 ML BAG 100 MG IVPB (14:17)
--- NOTE | 2024-12-02 15:20 | ADMGEN ---
This patient, Milo Boo, was admitted to 3 [facility] Surg Room 317-02. Patient/family oriented to hospital policies and general routines including ID bracelet, bed and alarms, visiting hours, pain management, procedures, bathroom and other care routines, personal items, smoking policy, room service/diet, and visiting hours. Information on how to activate the Rapid Response Team has been discussed. Patient/Family are encouraged to report perceived risks to care and to ask questions if they do not understand what they are told or what they should do. received report from Tila.
[2024-12-02] MEDS: SODIUM CHLORIDE 0.9% IV 1,000 ML 75 ML IV CONT (17:35)
[2024-12-02] MEDS: HYOSCYAMINE SULFATE 0.0625 MG TABLET PO ×2 (17:35→21:32)
[2024-12-02] MEDS: HYDROcodone/acetaminophen (*CRX) 5-325 MG TABLET 1 TAB PO (17:35)
[2024-12-03 03:43] VITALS: BP 107/60; PULSE 72; RESP 18; TEMP 36.6; O2SAT 97
[2024-12-03] MEDS: HYOSCYAMINE SULFATE 0.0625 MG TABLET PO ×2 (05:33→12:35)
[2024-12-03 06:28] LABS: Hematocrit 32.8 % (37.0-47.0); Hemoglobin 10.9 g/dL (12.0-15.0); Immature Granulocyte Percent A 0.6 % (0-0.5); Lymphocytes Absolute Auto 1.44 K/mm3 (0.9-3.2); Mean Corpuscular HGB Conc 33.2 g/dl (32-36); Mean Corpuscular Hemoglobin 30.1 pg (26-34); Mean Corpuscular Volume 90.6 fl (80-100); Nucleated Red Blood Cells Absolute Auto 0.000 K/mm3 (0.0-0.012); Nucleated Red Blood Cells Perc 0.0 % (0.0-0.2); Platelet Count Result 261 k/mm3 (150-375); Red Blood Count 3.62 M/mm3 (4.2-5.4); White Blood Count 8.5 K/mm3 (4.5-10.0)
[2024-12-03 06:43] LABS: Alanine Aminotransferase 13 U/L (6-35); Albumin Level 3.6 g/dL (3.5-5.1); Alkaline Phosphatase 53 U/L (38-126); Anion Gap 7 mmol/L (4-12); Aspartate Amino Transferase 22 U/L (14-36); Bilirubin,Total 0.2 mg/dL (0.2-1.3); Blood Urea Nitrogen 29 mg/dL (7-17); Calcium 8.9 mg/dL (8.4-10.2); Carbon Dioxide 22 mmol/L (22-30); Chloride 108 mmol/L (98-107); Estimated CRCL calculation 45 ml/min; Estimated Glomerular Filt Rate 40; Glucose 113 mg/dL (65-110); Magnesium 2.0 mg/dL (1.6-2.3); Potassium 4.0 mmol/L (3.4-5.0); Sodium 137 mmol/L (137-145); Total Protein 6.4 g/dL (6.3-8.2)
[2024-12-03] MEDS: HYDROcodone/acetaminophen (*CRX) 5-325 MG TABLET 1 TAB PO (08:18)
--- NOTE | 2024-12-03 09:09 | WPDUROPN2 ---
Progress Note: A&P Assessment and Plan (1) Calculus of both ureters: Code(s): N20.1 - Calculus of ureter Status: Acute Assessment and Plan: - S/p BL URS, ureteral stent placement 12/02 - Symptomatically improved today - Will plan for outpatient follow up and stent removal with Dr. Adair (2) Hydronephrosis: Qualifiers: Hydronephrosis type: with renal calculous obstruction Qualified Code(s): N13.2 - Hydronephrosis with renal and ureteral calculous obstruction Code(s): N13.30 - Unspecified hydronephrosis Status: Acute Assessment and Plan: - In the setting of BL ureteral calculi - Pt planned for ALEENA today, will assess for improvement (3) Acute kidney injury: Code(s): N17.9 - Acute kidney failure, unspecified Status: Acute Assessment and Plan: - In the setting of BL ureteral calculi - Following URS/stents creatinine normalization 1.4 (4) Renal mass: Code(s): N28.89 - Other specified disorders of kidney and ureter Status: Acute Assessment and Plan: - On CT A/P Left inferior renal cysts and questionable Left superior renal mass not adequately assessed on CT - Primary planning for ALEENA today, will review at outpatient follow up and make further recommendaitons pending results Subjective Subjective Date/Time Seen: 12/03/24 09:09 Interval history: NAEO; pt resting comfortably in bed. Reports new frequency, urgency. Denies significant flank pain or dysuria. Exam Narrative: GENERAL: Well-appearing, well-nourished, and in no acute distress. HEAD: Normocephalic, atraumatic. ENT: Mucous membranes moist. CHEST: Clear to auscultation. No respiratory distress. HEART: Regular rate and rhythm. Normal peripheral pulses. ABDOMEN: Soft, nondistended, no CVA tenderness EXTREMITIES: Normal range of motion. No edema. SKIN: Warm, dry, no rash. NEURO: Alert and oriented x3. PSYCH: Normal mood and affect. Objective Data Vital Signs Vital Signs: Vital Signs - 24 hr 12/02/24 10:04 12/02/24 10:31 12/02/24 11:00 Temperature 36.3 C L Pulse Rate 70 81 67 Respiratory Rate 16 18 18 Blood Pressure 139/77 136/81 136/72 Pulse Oximetry 100 100 98 Oxygen Delivery Room Air Oxygen Flow Rate 12/02/24 11:56 12/02/24 12:10 12/02/24 12:25 Temperature 36.2 C L Pulse Rate 97 92 83 Respiratory Rate 10 L 18 12 Blood Pressure 131/73 126/72 127/84 Pulse Oximetry 100 100 100 Oxygen Delivery Simple Face Mask Simple Face Mask Simple Face Mask Oxygen Flow Rate 8 8 8 12/02/24 12:40 12/02/24 12:55 12/02/24 13:27 Temperature 36.2 C L Pulse Rate 78 78 72 Respiratory Rate 12 12 16 Blood Pressure 129/79 134/81 130/78 Pulse Oximetry 99 100 100 Oxygen Delivery Room Air Room Air Oxygen Flow Rate 12/02/24 13:32 12/02/24 14:02 12/02/24 15:21 Temperature 35.9 C L 36.1 C L Pulse Rate 77 71 Respiratory Rate 16 18 Blood Pressure 131/86 143/91 H Pulse Oximetry 99 98 Oxygen Delivery Room Air Oxygen Flow Rate 12/02/24 15:41 12/02/24 20:00 12/02/24 21:20 Temperature 36.3 C L 36.8 C Pulse Rate 80 78 78 Respiratory Rate 18 18 18 Blood Pressure 144/89 H 110/82 Pulse Oximetry 99 98 98 Oxygen Delivery Room Air Oxygen Flow Rate 12/03/24 03:43 Temperature 36.6 C Pulse Rate 72 Respiratory Rate 18 Blood Pressure 107/60 Pulse Oximetry 97 Oxygen Delivery Oxygen Flow Rate Intake/Output Intake/Output: Intake & Output 11/30/24 12/01/24 12/02/24 12/03/24 23:59 23:59 23:59 23:59 Intake Total 1590 530 Balance 1590 530 Meds/Results Medications: Active Medications Generic Name Dose Route Start Last Admin Trade Name Freq PRN Reason Stop Dose Admin Hydrocodone Bitart/Acetaminophen 1 tab 12/02/24 13:02 12/03/24 08:18 Hydrocodone/Acetaminophen (*Crx) 5-325 Mg Tablet PO 1 tab Q4H PRN Administration Pain Rated 4-6 Hyoscyamine 0.0625 mg 12/02/24 17:13 12/03/24 05:33 Hyoscyamine Sulfate 0.0625 Mg Tablet PO 0.0625 mg Q4H PRN Administration Bladder Spasm Levofloxacin/Dextrose 750 mg in 150 mls @ 100 mls/hr 12/02/24 13:30 12/02/24 15:47 Levaquin 750 Mg/D5w 150 Ml IVPB Infused Q48HR LANCE Infusion Sodium Chloride 1,000 mls @ 75 mls/hr 12/02/24 17:15 12/02/24 17:35 Normal Saline Iv IV CONT 75 mls/hr .[id number] LANCE Administration Ondansetron HCl 4 mg 12/02/24 10:36 Ondansetron Inj 4 Mg/2 Ml Vial IV PUSH Q4H PRN Nausea Ondansetron HCl 4 mg 12/02/24 11:02 Ondansetron Inj 4 Mg/2 Ml Vial IV PUSH ONCE PRN Nausea Oxybutynin Chloride 5 mg 12/02/24 13:02 12/03/24 05:33 Oxybutynin Chloride 5 Mg Tablet PO 5 mg TID PRN Administration Abdominal Cramping Radiology Results: ITS Impressions Abdomen/Pelvis CT 12/02/24 08:44 IMPRESSION: 1. Bilateral obstructive uropathy. 2. Complex left renal lesion concerning for neoplasm. Ultrasound recommended Retrograde Pyelogram 12/02/24 11:56 IMPRESSION: 1. Fluoroscopy utilized during bilateral retrograde pyelogram, possible left ureteral stone extraction and bilateral internal ureteral stent placements with stents in expected positions. See procedure note for further detail. Labs Labs: Laboratory Results - last 24 hr 12/02/24 12/03/24 08:47 05:57 WBC 10.0 8.5 RBC 4.15 L 3.62 L Hgb 12.4 10.9 L Hct 36.8 L 32.8 L MCV 88.7 90.6 MCH 29.9 30.1 MCHC 33.7 33.2 RDW 13.1 12.9 Plt Count 276 261 MPV 10.9 H 11.2 H Immature Gran % (Auto) 0.4 0.6 H Neut % (Auto) 80.2 H 75.5 H Lymph % (Auto) 10.7 L 17.0 L [place] % (Auto) 6.3 6.6 Eos % (Auto) 2.0 0.1 Baso % (Auto) 0.4 0.2 Lymph # (Auto) 1.07 1.44 [place] # (Auto) 0.6 0.6 Eos # (Auto) 0.2 0.0 Baso # (Auto) 0.0 0.0 Abs Immat Gran (auto) 0.04 H 0.05 H Absolute Neuts (auto) 8.0 H 6.4 Absolute Nucleated RBC 0.000 0.000 Nucleated RBC % 0.0 0.0 Sodium 137 137 Potassium 4.5 4.0 Chloride 104 108 H Carbon Dioxide 24 22 Anion Gap 9 7 BUN 37 H D 29 H Creatinine 2.59 H 1.39 H Estim Creat Clear Calc 25 45 Estimated GFR 19 L 40 L Glucose 97 113 H Calcium 10.1 8.9 Magnesium 2.0 Total Bilirubin 0.5 0.2 AST 26 22 ALT 16 13 Alkaline Phosphatase 45 53 Total Protein 7.3 6.4 Albumin 4.2 3.6 Lipase 198 Urine Color [place] H Urine Appearance Cloudy H Urine pH TNP Ur Specific [place] TNP Urine Protein TNP Urine Glucose (UA) TNP Urine Ketones TNP Ur Blood (Man) TNP Urine Nitrate TNP Urine Bilirubin TNP Urine Urobilinogen TNP Add Ur Microanalysis Reviewed Leukocyte Esterase Rfl TNP Urine RBC 21-50 H Urine WBC 21-50 H Ur Squamous Epith Cells Occasional Urine Bacteria None seen Urine Casts 0-2
--- NOTE | 2024-12-03 12:17 | PM.DS ---
DS: Admitting Diagnosis Discharge Date 12/03/2024 Admitting Diagnosis Flank pain DS: Discharge Diagnosis Discharge Diagnosis (1) Calculus of both ureters: Code(s): N20.1 - Calculus of ureter Status: Acute (2) Hydronephrosis: Qualifiers: Hydronephrosis type: with renal calculous obstruction Qualified Code(s): N13.2 - Hydronephrosis with renal and ureteral calculous obstruction Code(s): N13.30 - Unspecified hydronephrosis Status: Acute (3) Acute kidney injury: Code(s): N17.9 - Acute kidney failure, unspecified Status: Acute DS: Summary Hospital Course Hospital Course: 49-year-old female who presents to the ER with flank pain ongoing for the past couple days. Pain in the left as well as right. Tried azo without improvement. No dysuria. She also noted blood in her urine of the past few days. No fever chills. History of kidney stones. In the ED are vitals were stable. Laboratory studies showed WBC of 10 hemoglobin 12.4 platelet count 276. Chem panel showed sodium 137 potassium 4.5 chloride 104 bicarbonate 24 BUN 37 creatinine 2.59 blood glucose of 97. Lipase is 198 LFTs were normal. Urinalysis showed urine WBC 20 1-50 urine RBC 21-50. CT scan showed bilateral hydronephrosis with bilateral distal ureteral stones. Urology has been consulted. And underwent cystoscopy bilateral ureteroscopy stone extraction and bilateral ureteral stent placement with much improvement She is admitted in this setting for further treatment. Bilateral obstructive uropathy with bilateral ureteral stones and bilateral hydronephrosis status post bilateral ureteroscopy stone extraction and stent placement. Repeat ultrasound with resolution of hydronephrosis ULISES with creatinine up to 2.5. Baseline creatinine 1.1 continue IV hydration and creatinine down to 1.3 at the time of discharge UTI levofloxacin IV follow urine culture allergic to penicillin Left renal lesion concerning for neoplasm. Ultrasound recommend and repeat ultrasound with couple anechoic exophytic cyst at the lower lobe of the left kidney measuring 1.5 and 1.3 cm. Bilateral hydronephrosis has resolved. This will be followed up as an outpatient basis. Hypertension home medication Hyperlipidemia home medication Anxiety depression home medication DVT prophylaxis SCDs Code status full code Time Spent with Patient Time attestation: Total time spent providing and/or coordinating discharge services: 45 minutes Exam Narrative: GENERAL: Well-appearing, well-nourished, and in no acute distress. HEAD: Normocephalic, atraumatic. ENT: Mucous membranes moist. CHEST: Clear to auscultation. No respiratory distress. HEART: Regular rate and rhythm. Normal peripheral pulses. ABDOMEN: Soft, mild discomfort in RUQ and LLQ, nondistended. EXTREMITIES: Normal range of motion. No edema. SKIN: Warm, dry, no rash. NEURO: Alert and oriented x3. PSYCH: Normal mood and affect. DS: Data Data Completed and Pending Completed studies during hospitalization: Pending at discharge 12/02/24 11:45 Surgical [PTH] Routine Labs on day of discharge: Labs from last 24 hours 12/03/24 05:57 WBC 8.5 RBC 3.62 L Hgb 10.9 L Hct 32.8 L MCV 90.6 MCH 30.1 MCHC 33.2 RDW 12.9 Plt Count 261 MPV 11.2 H Immature Gran % (Auto) 0.6 H Neut % (Auto) 75.5 H Lymph % (Auto) 17.0 L [place] % (Auto) 6.6 Eos % (Auto) 0.1 Baso % (Auto) 0.2 Lymph # (Auto) 1.44 [place] # (Auto) 0.6 Eos # (Auto) 0.0 Baso # (Auto) 0.0 Abs Immat Gran (auto) 0.05 H Absolute Neuts (auto) 6.4 Absolute Nucleated RBC 0.000 Nucleated RBC % 0.0 Sodium 137 Potassium 4.0 Chloride 108 H Carbon Dioxide 22 Anion Gap 7 BUN 29 H Creatinine 1.39 H Estim Creat Clear Calc 45 Estimated GFR 40 L Glucose 113 H Calcium 8.9 Magnesium 2.0 Total Bilirubin 0.2 AST 22 ALT 13 Alkaline Phosphatase 53 Total Protein 6.4 Albumin 3.6 Imaging Radiologist's impression: ITS Impressions Abdomen/Pelvis CT 12/02/24 08:44 IMPRESSION: 1. Bilateral obstructive uropathy. 2. Complex left renal lesion concerning for neoplasm. Ultrasound recommended Retrograde Pyelogram 12/02/24 11:56 IMPRESSION: 1. Fluoroscopy utilized during bilateral retrograde pyelogram, possible left ureteral stone extraction and bilateral internal ureteral stent placements with stents in expected positions. See procedure note for further detail. Renal Ultrasound 12/03/24 11:39 IMPRESSION: 1. Interval resolution of prior bilateral hydronephrosis. Discharge Plan Discharge Attending physician on discharge: Lex Hayes Discharging Clinician: Lex Hayes Anticipated Discharge Date/Time: 12/03/24 12:19 Patient Disposition: Home Activity: as tolerated Diet: heart healthy Patient Instructions: Antibiotic Form Patient Language: Salvadorean Stand Alone Forms: General Discharge Information Follow-up/Referrals: Toyin*,Kevin Begum MD [Primary Care Provider, Unknown] - 1 Week Edward Adair MD [Physician, Urology] - 1 Week Referral Note: S/p BL URS, needs cysto, stent pulls Discharge Medications: New tamsulosin 0.4 mg capsule 0.4 mg PO DAILY Qty: 20 0RF solifenacin 5 mg tablet 5 mg PO DAILY Qty: 20 0RF levofloxacin 750 mg tablet 750 mg PO DAILY Qty: 5 0RF Continued alum-mag hydroxide-simeth [Antacid] 200-200-20 mg/5 mL suspension 15 ml PO QID PRN (Reason: pain) Qty: 3000 0RF Rx Instructions: administer between meals and at bedtime trazodone 50 mg tablet valacyclovir 500 mg tablet estradiol 1 mg tablet ondansetron 4 mg tablet,disintegrating ezetimibe 10 mg tablet bupropion HCl 300 mg tablet extended release 24 hr PO fenofibrate nanocrystallized 145 mg tablet PO Wegovy 1.7 mg/0.75 mL pen injector SUBCUT Discontinued Wegovy 2.4 mg/0.75 mL pen injector SUBCUT Date of admission: 12/02/24 11:10 Primary Care Provider: Noam*Kevin Velásquez Admitting Provider: Edward Adair Attending physician on admission: Edward Adair Condition: Stable
--- OUTSIDE RECORDS SUMMARY | 2024-12-04 07:22 | XMS_ITS | Clinical Summary ---
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 Active oxybutynin chloride (DITROPAN XL) 10 mg Extended Release 24 hour tabletIndications :Urge incontinence Take 1 Tablet (10 mg) by mouth daily. 30 Tablet 3 04/13/2020 Active valACYclovir (VALTREX) 500 mg tablet TAKE 1 TABLET BY MOUTH TWICE A DAY 60 Tablet 01/11/2021 Active conjugated estrogens (Premarin) 0.625 mg tabletIndications :Menopausal symptoms Take 1 Tablet (0.625 mg) by mouth daily. 30 Tablet 2 02/03/2021 Active Active Problems Patient Care Coordination No te Formatting of this note migh t be different from the original. 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 Noted Date Diagnosed Date Electronic cigarette use 10/26/2018 Menopausal symptoms 10/25/2018 Urge incontinence 10/25/2018 Family History Medical History Relation Name Comments Breast Cancer Neg Hx Colon Cancer Neg Hx Ovarian Cancer Neg Hx Social History Tobacco Use Types Packs/Day Years Used Date Smoking Tobacco: Former Smokeless Tobacco: Never Alcohol Use Standard Drinks/Week Comments Never 0 (1 standard drink = 0.6 oz pur e alcohol) Comments No Sex and Gender Information Value Date Recorded Sex Assigned at Not on file Legal Sex Female 9:16 AM CDT Gender Identity Not on file Sexual Orientation Not on file Last Filed Vital Signs Vital Sign Reading Time Taken Comments Blood Pressure 130/94 02/05/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 Pulse - - Temperature - - Respiratory Rate - - Oxygen Saturation - - Inhaled Oxygen Concentration - - Weight 77.1 kg (170 lb) 02/05/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 Height 180.3 cm (5' 11) 02/05/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 Body Mass Index 23.71 02/05/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 Plan of Treatment Health Maintenance Due Date Last Done Comments DTAP/TDAP/TD VACCINES (1 - Tdap) 1992 HEPATITIS B VACCINES (1 of 3 - 19+ 3-dose series) 04/13 HPV/Cotest (21-29) 1994 CERVICAL CANCER SCREENING 04/26/2003 HPV/Cotest (30-65) 04/26/2003 PAP SMEAR 04/26/2003 COLORECTAL SCREENING 2018 Colorectal Cancer Screening 2018 FIT-DNA Q 3 years 2018 FIT/FOBT Q 1 year 2018 Flex Sig/CT Colonography Q 5 years 2018 BREAST CANCER SCREENING 10/10/2019 10/09/2018 ZOSTER VACCINE (1 of 2) 04/26/2023 INFLUENZA VACCINE (#1) 2024 10/15/2018 Procedures Procedure Name Priority Date/Time Associated Diagnosis Comments MAMMO 3D GODWIN SCREEN BILAT W OR WO CAD Routine 10/09/2018 7:32 AM CDT Screening for breast cancer from Last 3 Months or Most Recently Relevant to Health Maintenance Results * MAMMO SCRN BILAT 3D GODWIN W OR WO CAD (10/09/2018 7:32 AM CDT) Anatomical Region Laterality Modality Breast Bilateral Mammography 10/09/2018 7:32 AM CDT Impressions 10/10/2018 2:55 PM CDT IMPRESSION: Negative bilateral screening mammogram. Recommend routine followup. OVERALL FINAL ASSESSMENT: BI-RADS CATEGORY 1: Negative DICTATION LOCATION: [facility] Narrative 10/10/2018 2:55 PM CDT BILATERAL SCREENING DIGITAL MAMMOGRAMS WITH COMPUTER ASSISTED DIAGNOSIS WITH TOMOGRAPHY DATE: 10/09/2018 7:32 AM HISTORY: Annual screening study. COMPARISON: This is the patient's baseline mammogram. TECHNIQUE: A bilateral screening mammogram was performed. Low-dose full-field digital breast tomosynthesis examination was performed with 2D and 3D acquisitions. Examination is read in conjunction with computer aided detection. BREAST COMPOSITION: Heterogeneously dense, which lowers the sensitivity of mammography. FINDINGS: No masses, suspicious calcifications, or areas of asymmetry or distortion are identified. The images were reviewed using the CAD system. Procedure Note Paige Britton MD - 10/10/2018 BILATERAL SCREENING DIGITAL MAMMOGRAMS WITH COMPUTER ASSISTED DIAGNOSIS WITH TOMOGRAPHY DATE: 10/09/2018 7:32 AM HISTORY: Annual screening study. COMPARISON: This is the patient's baseline mammogram. TECHNIQUE: A bilateral screening mammogram was performed. Low-dose full-field digital breast tomosynthesis examination was performed with 2D and 3D acquisitions. Examination is read in conjunction with computer aided detection. BREAST COMPOSITION: Heterogeneously dense, which lowers the sensitivity of mammography. FINDINGS: No masses, suspicious calcifications, or areas of asymmetry or distortion are identified. The images were reviewed using the CAD system. IMPRESSION: Negative bilateral screening mammogram. Recommend routine followup. OVERALL FINAL ASSESSMENT: BI-RADS CATEGORY 1: Negative DICTATION LOCATION: [facility] Nguyen Marcano DO MAMMO ORDERABLES Final Re sult from Last 3 Months or Most Recently Relevant to Health Maintenance Insurance BLUE ACCESS CHOICE
== END 2024-12-03 13:15 | disposition home or self-care (01) ==
LOC: ANHED 10:48 → ANH3MEDSUR 12-03 12:20 → ANHED 12-04 07:20 → ANHSURGERY 12-04 07:20 → ANH3MEDSUR 12-04 07:20
PROVIDERS: Urology; Admitting Provider Internal Medicine; Emergency Provider Emergency Medicine; PCP Family Medicine; Visit Provider Internal Medicine
PROC: (CPT 52352; principal; 2024-12-02 14:30)
DX: N13.2 Hydronephrosis with renal and ureteral calculous obstruction (principal); N17.9 Acute kidney failure, unspecified; N28.89 Other specified disorders of kidney and ureter; K21.9 Gastro-esophageal reflux disease without esophagitis; I10 Essential (primary) hypertension; E78.5 Hyperlipidemia, unspecified; F41.8 Other specified anxiety disorders; Z87.442 Personal history of urinary calculi; Z87.891 Personal history of nicotine dependence
CPT/HCPCS: 52356; 36415; 74176; 74420; 76770; 80053; 81001; 82365; 83690; 83735; 85025; 87086; 88300; 96361; 96374; 96375; 99285; J0690; A9270; C1758; C1769; C2617; G0378; J1100; J1596; J1956; J2003; J2250; J2270; J2371; J2405; J2704; J3010; J7030; J7120; Q9966